=== PATIENT | female | born 1940 | race Caucasian/White ===

== ENCOUNTER 2016-08-13 11:07 | Emergency (ER) | payer MEDICARE ==
[~2016-08-13] VITALS: Ht 167.6 cm; Wt 47.1 kg
[~2016-08-13 11:07] MED LIST: ACTOS30 MG OR; ADLT ASA LOW81 MG PO; AFRIN SINUS; ALBUTEROL S2.5 MG/.5 IN; ALLOPURINOL300 MG PO; AMOXICILLIN500 MG OR; ASPIRIN CHEWABL81 MG PO; AUGMENTIN875TAB PO; BACTRIM DS1 TAB PO; COZAAR50 MG PO; GLIPIZIDE5 MG PO; HUMULIN 70/30 SC; HYDROCHLORO25 MG/TAB PO; HYDROCHLOROT12.5 MG PO; HYDROXYZ HCL25 MG PO; LACTULOSE PO; LANTUS100 MG/ML SC; LASIX 20 MG TAB20 MG PO; LASIX 40 MG TAB40 MG PO; LOSARTAN POT50 MG PO; MAGNESIUM296 ML/BTL PO; MEDDOSEPAK PO; METFORMIN1000 MG PO; METFORMIN500 MG PO; METHOCARBAM500 MG PO; MIRALAX3350 N1 PO; MOTRIN400 MG PO; MUCINEX600 MG PO; NAPROSYN500 MG PO; NAPROXEN500 MG PO; NEBULIZER KIT/TUBING XX; NORVASC10 M1 PO; NOVOLIN 70/30 SC; NOVOLO1 SC; NOVOLOG SC; OXYCODONE HCL5 MG PO; PAROXETINE20 MG PO; PAXIL10 MG OR; PAXIL40 MG PO; PERCOCET 5/325M1 TAB PO; POT CHLORIDE20 ME3 PO; PROMETHAZINE25 MG PO; PROVENTIL HFA INH; RANITIDINE150 M1 PO; RESTORIL15 MG; SENNA/DSS1 TAB PO; SENNA1 TAB PO; SIMVASTATIN10 MG PO; SPIRONOLACTONE100 MG PO; TRAMADOL HCL50 MG PO; VANCOMYCIN750 MG IV; ZOCOR10 MG PO; ZOFRAN8 MG PO; ZPAK PO; augmentin OR
[2016-08-13] MEDS ORDERED: COLACE100 MG PO (12:12)
[2016-08-13 12:34] VITALS: BP 148/76
== END 2016-08-13 12:51 | disposition home or self-care (01) ==
LOC: ED 11:07
DX: K56.41 Fecal impaction (principal); R05 Cough; R06.02 Shortness of breath; R53.1 Weakness; F17.200 Nicotine dependence, unspecified, uncomplicated

== ENCOUNTER 2016-08-22 19:31 | Inpatient (IN) | payer MEDICARE ==
[~2016-08-22] VITALS: Ht 165.1 cm; Wt 42.0 kg
[~2016-08-22 19:31] MED LIST changes: +COLACE100 MG PO
--- NOTE | 2016-08-22 19:31 | NUR ---
ADM A/O ELDERLY FRAIL F WITH STATED ABD PAIN NO BM IN 1 WEEK.WAS DISIMPACTED HERE 1 WEEK AGO PT HAS SOFT DISTENDED ABD WITH ACTIVE SOUNDS.PT HAS INCONTINENCE OF SOFT BROWN STOOL ON ARRIVAL PRAMOD CARE ON ARRIVAL.
--- NOTE | 2016-08-22 20:09 | NUR ---
PT NOW WITH PORT ACCESSED, BLOOD COLLECTED, AWAITS EDP EVALUATION.
[2016-08-22 20:43] LABS: HEMATOCRIT 36.4 % (37.0-47.0); HEMOGLOBIN 12.2 g/dl (12.0-16.0); IMMATURE GRANULOCYTES 0.2 % (0.0-1.0); MEAN CELL VOLUME 88.8 fL CALC (80.0-100.0); MEAN CORPUSCULAR HGB 29.8 pG CALC (26.0-32.0); MEAN CORPUSCULAR HGB CONC 33.5 g/L CALC (32.0-36.0); NEUT# 7.06 thou/uL (2.00-7.15); RED BLOOD COUNT 4.1 mill/uL (4.20-5.60); RED CELL DISTRI WIDTH 13.4 % (11.5-15.5)
[2016-08-22 20:50] LABS: ALBUMIN 2.5 g/dL (3.2-5.0); ALKALINE PHOSPHATASE 336 u/l (38-126); AMYLASE 39 u/l (30-110); ANION GAP 11 (6-22 (CALC)); BILIRUBIN, TOTAL 0.5 mg/dL (0.0-1.4); BUN 40 mg/dL (8-23); BUN/CREATININE RATIO 48 (12-20 (CALC)); CALCIUM 7.6 mg/dL (8.4-10.2); CARBON DIOXIDE 26 mmol/l (22-30); CHLORIDE 94 mmol/l (95-108); CREATININE 0.8 mg/dL (0.5-1.0); GFR > 60 ML/MIN (>=60 (CALC)); GFR FOR AFR.AMER. > 60 ML/MIN (>=60 (CALC)); LIPASE 212 u/l (23-300); SGOT/AST 35 u/l (9-36); SGPT/ALT 30 u/l (11-66); SODIUM 125 mmol/l (137-146); TOTAL PROTEIN 6.4 g/dL (6.3-8.2)
[2016-08-22 20:52] LABS: GLUCOSE 561 mg/dL (82-115); POTASSIUM 5.7 mmol/l (3.5-5.1)
[2016-08-22 22:26] LABS: URINE BILIRUBIN - DIPSTICK NEGATIVE (NEGATIVE); URINE BLOOD DIPSTICK NEGATIVE (NEGATIVE); URINE CLARITY CLEAR; URINE COLOR YELLOW; URINE GLUCOSE - DIPSTICK >=1000 mg/dL (NEGATIVE); URINE KETONE NEGATIVE (NEGATIVE); URINE LEUK ESTERASE NEGATIVE (NEGATIVE); URINE NITRITE - DIPSTICK NEGATIVE (Negative); URINE PROTEIN - DIPSTICK NEGATIVE (NEG-TRACE); URINE SPECIFIC GRAVITY <=1.005; URINE UROBILINOGEN - DIPSTICK 0.2 E.U./dL (0.2)
--- NOTE | 2016-08-22 22:36 | NUR ---
ASLEEP AND IN NO DISCOMFORT NO V/D.
--- NOTE | 2016-08-22 22:57 | NUR ---
PHONE REPORT TO NURSE TOBY
--- NOTE | 2016-08-22 23:35 | NUR ---
TP 2ND FLOOR VIA STRETCHER IN STABLE CONDITION.BEDSIDE REPORT ADDENDUM TO NURSE LUIS
[2016-08-22 23:40] VITALS: BP 114/78
--- NOTE | 2016-08-22 23:45 | NUR ---
RECEIVED FROM ER VIA STRETCHER ACCOMPANIED BY ER NURSE, TRANSFERRED TO BED WITH ASSISTANCE X3, PT IS EMACIATED AND WEAK. RESPIRATIONS EVEN AND UNLABORED ON O2 @3L VIA NC. C/O BACK PAIN 01/06, ACCUCHECK 411. DR. GRACE CALLED AND NOTIFIED, NEW ORDERS RECEIVED. WOUNDS NOTICED TO COCCYX, RIGHT AND LEFT ANKLE, AND TO RIGHT HAND BETWEEN THUMB AND INDEX FINGER. COVERED WITH DRESSINGS. PROVIDED WITH SANDWICH AND DRINK PER PT REQUEST, CHEWING AND SWALLOWING WITH NO PROBLEM. L NARE SWABBED FOR HX OF MRSA, ON CONTACT PRECATIONS. ENCOURAGED TO USE CALL LIGHT FOR ASSISTANCE. WILL CONTINUE TO MONITOR.
--- NOTE | 2016-08-23 00:45 | NUR ---
MEDICATED WITH OXYCODONE FOR C/O BACK PAIN AND RESTORIL FOR SLEEP, ACCUCHECK 411, COVERED WITH 15U OF NOVULOG INSULIN PER DR'S ORDERS. BEDOYA CATHETER 16FR INSERTED WITH 400ML YELLOW URINE DRAINING INTO BAG. ENCOURAGED TO USE CALL LIGHT FOR ASSISTANCE. WILL CONTINUE TO MONITOR.
--- NOTE | 2016-08-23 03:30 | NUR ---
PT RESTING ON RIGHT SIDE WITH EYES CLOSED, RESPIRATIONS EVEN AND UNLABORED.
[2016-08-23 04:04] VITALS: BP 95/63
--- NOTE | 2016-08-23 05:45 | NUR ---
PT REPOSITIONED TO RIGHT SIDE WITH MINIMAL ASSISTANCE, ACCUCHECK 115 AT THIS TIME.
[2016-08-23 08:58] LABS: HEMATOCRIT 38.5 % (37.0-47.0); HEMOGLOBIN 12.9 g/dl (12.0-16.0); IMMATURE GRANULOCYTES 0.5 % (0.0-1.0); MEAN CELL VOLUME 88.5 fL CALC (80.0-100.0); MEAN CORPUSCULAR HGB 29.7 pG CALC (26.0-32.0); MEAN CORPUSCULAR HGB CONC 33.5 g/L CALC (32.0-36.0); NEUT# 6.71 thou/uL (2.00-7.15); RED BLOOD COUNT 4.35 mill/uL (4.20-5.60); RED CELL DISTRI WIDTH 13.3 % (11.5-15.5)
[2016-08-23 09:00] VITALS: BP 122/75
--- NOTE | 2016-08-23 09:00 | NUR ---
ASSESSMENT IS COMPLTED: BREATH SOUNDS ARE WHEEZING THROUGH OUT. IV SITE IS FREE FROM REDNESS OR EDEMA. CONTINUE TO OBSERVE AND MONITOR
[2016-08-23 09:08] LABS: ACT PARTIAL THROMBO TIME 27.6 SECONDS (20.0-32.5); ANION GAP 8 (6-22 (CALC)); BUN 39 mg/dL (8-23); BUN/CREATININE RATIO 42 (12-20 (CALC)); CARBON DIOXIDE 28 mmol/l (22-30); CHLORIDE 98 mmol/l (95-108); CREATININE 0.9 mg/dL (0.5-1.0); GFR > 60 ML/MIN (>=60 (CALC)); GFR FOR AFR.AMER. > 60 ML/MIN (>=60 (CALC)); GLUCOSE 116 mg/dL (82-115); PROTHROMBIN TIME 10.5 SECONDS (9.0-12.5); SODIUM 128 mmol/l (137-146)
[2016-08-23 09:11] LABS: POTASSIUM 5.7 mmol/l (3.5-5.1)
--- NOTE | 2016-08-23 12:00 | NUR ---
PT IS LAYING DOWN. IV SITE IS FREE FROM REDNESS OR EDEMA. NO DISTRESS NOTED. CONITNUE TO OSBERVE AND MONITOR.
--- NOTE | 2016-08-23 14:00 | NUR ---
HOSPICE NURSE AND MARKETING SUPPORT SPECIALIST CAME BY TO SPEAK WITH PT. RE: HOSPICE HOUSE. PT REFUSED TO GO
--- NOTE | 2016-08-23 16:00 | NUR ---
PT IS RELAXING IN BED DID START TO HAVE BM. AIR MATTRESS CHANGED. IV SITE IS FREE FROM REDNESS OR EDEMA. CONTINUE TO OSBERVE AND MONITOR.
[2016-08-23 16:30] VITALS: BP 107/70
--- NOTE | 2016-08-23 16:41 | NUR ---
SMALL AMOUNT OF STOOL EXPELLED ALREADY FROM RECTUM. HAS STOOL RIGHT AT THE ANUS HOLE. LIGHT BROWN. [id number] DONE AND PT ENCOURAGED TO DRINK NULYTELY AND BEAR DOWN TO HAVE THE BM. CONTINUE TO OSBERVE AND MONITOR.
--- NOTE | 2016-08-23 19:00 | NUR ---
RECEIVED REPORT ON PATIENT FROM OFF GOING NURSE. PATIENT RESTING IN BED. NO ACUTE DISTRESS NOTED. NO VOICED COMPLAINTS AT THIS TIME.
[2016-08-23 19:10] VITALS: BP 104/64
--- NOTE | 2016-08-24 | NUR ---
PATIENT RESTING COMFORTABLY IN BED AT THIS TIME. NO VOICED COMPLAINTS.
[2016-08-24 04:10] VITALS: BP 111/72
[2016-08-24 05:50] LABS: HEMATOCRIT 36.9 % (37.0-47.0); HEMOGLOBIN 12.6 g/dl (12.0-16.0); IMMATURE GRANULOCYTES 0.3 % (0.0-1.0); MEAN CELL VOLUME 88.5 fL CALC (80.0-100.0); MEAN CORPUSCULAR HGB 30.2 pG CALC (26.0-32.0); MEAN CORPUSCULAR HGB CONC 34.1 g/L CALC (32.0-36.0); NEUT# 7.41 thou/uL (2.00-7.15); RED BLOOD COUNT 4.17 mill/uL (4.20-5.60); RED CELL DISTRI WIDTH 13.3 % (11.5-15.5)
[2016-08-24 06:37] LABS: BUN 38 mg/dL (8-23); BUN/CREATININE RATIO 50 (12-20 (CALC)); CALCIUM 8.1 mg/dL (8.4-10.2); CARBON DIOXIDE 27 mmol/l (22-30); CHLORIDE 98 mmol/l (95-108); CREATININE 0.8 mg/dL (0.5-1.0); GFR > 60 ML/MIN (>=60 (CALC)); GFR FOR AFR.AMER. > 60 ML/MIN (>=60 (CALC)); GLUCOSE 138 mg/dL (82-115); SODIUM 127 mmol/l (137-146)
[2016-08-24 06:48] LABS: ANION GAP 9 (6-22 (CALC)); POTASSIUM 6.6 mmol/l (3.5-5.1)
--- NOTE | 2016-08-24 07:00 | NUR ---
REPORT RECIEVED FROM JUANJO PATEL; PT RESTING IN BED WITH EYES CLOSED; EASILY AROUSABLE; PT DENIES ANY NEEDS AT THIS TIME; AIR MATTRESS IN PLACE FOR PT COMFORT; IVF INFUSING TO LEFT PORT ORDERED; PT ENCOURAGED TO CALL FOR ANY ASSISTANCE NEEDED; CALL LIGHT WITHIN REACH; WILL CONTINUE TO MONITOR
[2016-08-24 08:30] VITALS: BP 104/78
--- NOTE | 2016-08-24 11:30 | NUR ---
PT RESTING IN BED ON LEFT SIDE; PT INCONTINENT OF STOOL AT THIS TIME; PERICARE PROVIDED AND PT POSITIONED FOR COMFORT; PT STATES PAIN IS MUCH BETTER THAN BEFORE; PT ENCOURAGED TO CALL FOR ANY ASSISTANCE NEEDED; CALL LIGHT WITHIN REACH; WILL CONTINUE TO MONITOR
[2016-08-24 14:10] LABS: BUN 38 mg/dL (8-23); BUN/CREATININE RATIO 45 (12-20 (CALC)); CARBON DIOXIDE 30 mmol/l (22-30); CHLORIDE 97 mmol/l (95-108); CREATININE 0.8 mg/dL (0.5-1.0); GFR > 60 ML/MIN (>=60 (CALC)); GFR FOR AFR.AMER. > 60 ML/MIN (>=60 (CALC)); GLUCOSE 193 mg/dL (82-115); SODIUM 130 mmol/l (137-146)
[2016-08-24 14:11] LABS: ANION GAP 9 (6-22 (CALC)); POTASSIUM 5.7 mmol/l (3.5-5.1)
[2016-08-24] MEDS ORDERED: SENNA8.6 MG PO (15:00)
[2016-08-24 16:20] VITALS: BP 91/64
--- NOTE | 2016-08-24 16:30 | NUR ---
PT RESTING IN BED ON RIGHT SIDE; NO S/S OF DISTRESS NOTED; BEDOYA IN PLACE DRAINING GERARD URINE PER GRAVITY; AIR MATTRESS IN PLACE; CALL LIGHT WITHIN REACH; WILL CONTINUE TO MONITOR
--- NOTE | 2016-08-24 19:32 | NUR ---
PATIENT APPEARS SLEEPING AT THIS TIME POSITIONED ON LEFT SIDE. PATIENT WITH BEDOYA CATH PATENT AND DRAINING GERARD URINE. PATIENT WITH IVF NS PATENT AND INFUSING VIA LEFT UPPER CHEST PORT. CALL LIGHT IN REACH. WILL CONT TO MONITOR.
[2016-08-24 20:11] VITALS: BP 102/64
--- NOTE | 2016-08-24 21:43 | NUR ---
PATIENT TURNED AND REPOSITIONED ON RIGHT SIDE. PATIENT MEDICATED WITH KAYEXALATE 15GM PO ORDERED. BS-228 AND WAS COVERED PER SLIDING SCALE COVERAGE WITH 2UNITS OF NOVALOG. PATIENT MEDICATED WITH ULTRAM FOR BACK PAIN-7/10 ON PAIN SCALE. PATIENT ALSO GIVEN XANAX 0.5MG PO FOR ANXIETY. CALL LIGHT IN REACH. WILL CONT TO MONIOR.
--- NOTE | 2016-08-25 00:21 | NUR ---
PATIENT APPEARS SLEEPING AT THIS TIME POSITIONED ON HER SIDE. CALL LIGHT IN REACH. WILL CONT TO MONITOR.
--- NOTE | 2016-08-25 04:13 | NUR ---
PATIENT APPEARS SLEEPING AT THIS TIME. IVF PATENT AND INFUSING LEFT UPPER CHEST PORT AT 60CC/HR. CALL LIGHT IN REACH. WILL CONT TO MONITOR.
[2016-08-25 04:45] VITALS: BP 112/76
[2016-08-25 05:54] LABS: HEMATOCRIT 33.6 % (37.0-47.0); HEMOGLOBIN 11.1 g/dl (12.0-16.0); IMMATURE GRANULOCYTES 0.2 % (0.0-1.0); MEAN CELL VOLUME 90.1 fL CALC (80.0-100.0); MEAN CORPUSCULAR HGB 29.8 pG CALC (26.0-32.0); NEUT# 6.42 thou/uL (2.00-7.15); RED BLOOD COUNT 3.73 mill/uL (4.20-5.60); RED CELL DISTRI WIDTH 13.6 % (11.5-15.5)
[2016-08-25 06:08] LABS: ALBUMIN 2.1 g/dL (3.2-5.0); ALKALINE PHOSPHATASE 322 u/l (38-126); BILIRUBIN, TOTAL 0.3 mg/dL (0.0-1.4); BUN 34 mg/dL (8-23); BUN/CREATININE RATIO 45 (12-20 (CALC)); CALCIUM 7.5 mg/dL (8.4-10.2); CARBON DIOXIDE 25 mmol/l (22-30); CREATININE 0.8 mg/dL (0.5-1.0); GFR > 60 ML/MIN (>=60 (CALC)); GFR FOR AFR.AMER. > 60 ML/MIN (>=60 (CALC)); GLUCOSE 168 mg/dL (82-115); SGOT/AST 60 u/l (9-36); SGPT/ALT 41 u/l (11-66); SODIUM 129 mmol/l (137-146); TOTAL PROTEIN 5.6 g/dL (6.3-8.2)
[2016-08-25 06:10] LABS: POTASSIUM 5.7 mmol/l (3.5-5.1)
[2016-08-25 06:11] LABS: ANION GAP 9 (6-22 (CALC)); CHLORIDE 101 mmol/l (95-108)
--- NOTE | 2016-08-25 07:25 | NUR ---
PT IN SUPINE POSITION; NO COMPLAINTS VOICED; CALL LATHAM WITHIN REACH; WILL CONTINUE TO MONITOR.
[2016-08-25 08:21] VITALS: BP 86/50
--- NOTE | 2016-08-25 08:21 | NUR ---
DR. GRACE IN TO SEE PT; PLAN OF CARE DISCUSSED
--- NOTE | 2016-08-25 11:53 | NUR ---
PT WATCHING TV; DENIES PAIN; CALL LATHAM WITHIN REACH; WILL CONTINUE TO MONITOR.
--- NOTE | 2016-08-25 12:40 | NUR ---
PT TO RADIOLOGY VIA STRETCHER ACCOMPANIED BY STAFF
--- NOTE | 2016-08-25 13:40 | NUR ---
PT RETURN FROM RADIOLOGY VIA STRETCHER ACCOMPANIED BY STAFF; X2 TX TO BED; NO COMPLAINTS VOICED; CALL LATHAM WITHIN REACH; WILL CONTINUE TO MONITOR.
[2016-08-25 16:00] VITALS: BP 104/69
--- NOTE | 2016-08-25 16:30 | NUR ---
SPOUSE IN TO VISIT; INQUIRING ABOUT D/C HOME TODAY; INFORMED THEM MD WILL BE IN TO SEE PT AND MAKE DETERMINATION AT THAT TIME
--- NOTE | 2016-08-25 17:30 | NUR ---
DR. GRACE IN TO SEE PT; PLAN OF CARE DISCUSSED
[2016-08-25 19:21] VITALS: BP 100/58
--- NOTE | 2016-08-25 19:30 | NUR ---
PATIENT RESTING IN BED AT THIS TIME WITH O2 VIA NASAL CANNULA IN PLACE. PATIENT WITH IVF NS PATENT AND INFUSING LEFT UPPER CHEST PORT AT 60CC/HR. PATIENT WITH BEDOYA CATH IN PLACE AND DRAINING SMALL AMT OF GERARD URINE. PATIENT STATES THAT SHE HAS HAD MUCH RELIEF SINCE PARACENTESIS DONE EARLIER TODAY. DRESSING TO BOTH FEET INTACT AND DUSDERM TO COCCYX INTACT. ENCOURAGED PATIENT TO REPOSITION SIDE TO SIDE TO OFFLOAD PRESSURE POINTS. CALL LIGHT IN REACH. WILL CONT TO MONITOR.
--- NOTE | 2016-08-25 22:45 | NUR ---
PATIENT WAS COVERED WITH 2UNITS OF NOVALOG FOR BS-241. PATIENT MEDICATED FOR SLEEP WITH XANAX 0.5MG PO PER PATIENT REQUEST. CALL LIGHT IN REACH. WILL CONT TO MONITOR.
--- NOTE | 2016-08-26 02:06 | NUR ---
PATIENT APPEARS SLEEPING AT THIS TIME POSITIONED ON HER SIDE. CALL LIGHT IN REACH. WILL CONT TO MONITOR.
[2016-08-26 04:29] VITALS: BP 107/64
[2016-08-26 05:26] LABS: HEMATOCRIT 30.4 % (37.0-47.0); HEMOGLOBIN 10.3 g/dl (12.0-16.0); IMMATURE GRANULOCYTES 0.3 % (0.0-1.0); MEAN CELL VOLUME 90.2 fL CALC (80.0-100.0); MEAN CORPUSCULAR HGB 30.6 pG CALC (26.0-32.0); MEAN CORPUSCULAR HGB CONC 33.9 g/L CALC (32.0-36.0); NEUT# 7.47 thou/uL (2.00-7.15); RED BLOOD COUNT 3.37 mill/uL (4.20-5.60); RED CELL DISTRI WIDTH 13.6 % (11.5-15.5)
[2016-08-26 05:46] LABS: ALBUMIN 1.9 g/dL (3.2-5.0); ALKALINE PHOSPHATASE 305 u/l (38-126); ANION GAP 9 (6-22 (CALC)); BILIRUBIN, TOTAL 0.3 mg/dL (0.0-1.4); BUN 32 mg/dL (8-23); BUN/CREATININE RATIO 46 (12-20 (CALC)); CALCIUM 7.4 mg/dL (8.4-10.2); CARBON DIOXIDE 25 mmol/l (22-30); CHLORIDE 101 mmol/l (95-108); CREATININE 0.7 mg/dL (0.5-1.0); GFR > 60 ML/MIN (>=60 (CALC)); GFR FOR AFR.AMER. > 60 ML/MIN (>=60 (CALC)); GLUCOSE 220 mg/dL (82-115); SGOT/AST 59 u/l (9-36); SGPT/ALT 46 u/l (11-66); SODIUM 130 mmol/l (137-146)
[2016-08-26 05:47] LABS: POTASSIUM 5.3 mmol/l (3.5-5.1)
--- NOTE | 2016-08-26 06:00 | NUR ---
PATIENT CONT TO SLEEP-IN NO ACUTE DISTRESS WITHO2 VIA NASAL CANNULA IN PLACE. CALL LIGHT IN REACH. WILL CONT TO MONITOR.
[2016-08-26 07:25] VITALS: BP 96/52
--- NOTE | 2016-08-26 07:41 | NUR ---
PT ASSISTED WITH BREAKFAST SET UP; NO COMPLAINTS VOICED
--- NOTE | 2016-08-26 08:20 | NUR ---
DR. GRACE IN TO SEE PT; PLAN OF CARE DISCUSSED
[2016-08-26] MEDS ORDERED: SPIRONOLACTONE100 MG PO (09:07)
[2016-08-26] MEDS ORDERED: PROVENTIL HFA INH (09:07)
[2016-08-26] MEDS ORDERED: ALBUTEROL S2.5 MG/.5 IN (09:07)
[2016-08-26] MEDS ORDERED: OXYCODONE HCL5 MG PO (09:08)
[2016-08-26] MEDS ORDERED: ADLT ASA LOW81 MG PO (09:08)
[2016-08-26] MEDS ORDERED: PAROXETINE20 MG PO (09:09)
[2016-08-26] MEDS ORDERED: FENTANYL25 MCG/HR TD (09:09)
--- NOTE | 2016-08-26 09:33 | NUR ---
Patient is here for Procrit injection Current Procrit dose of 24,000 units on 08/26/16 Previous Procrit dose of 24,000 units on 08/13/16 Current Hgb on 08/13/16: 10.7 Previous Hgb on 07/16/16: 10.9 Previous Iron study on 05/04/16 Next Iron Study on 09/10/16 Next Hgb due on 09/10/16 Pt will come back for next dose of 24,000 units on 09/10/16 Notes: Pt was very pleasant and grateful for all we do for him. No changes in BP, diet, or activity. Pt discussed a concern with the cost of each visit. I told him I would look into it and discuss it with him next time. I am looking into any programs that may offer supplimental coverage for his medication. Side effects: No Dose adjustments: No
--- NOTE | 2016-08-26 11:03 | NUR ---
PORT REMOVED PER PROTOCOL; PT TOLERATED FAIR
--- NOTE | 2016-08-26 11:21 | NUR ---
Discharge instructions given. Patient verbalizes understanding of same. Discharged in stable condition via Wheelchair to Home with family. All belongings sent with pt.
== END 2016-08-26 11:12 | disposition hospice, home (50) | DRG 392 ==
LOC: ENPENDDIS → ED 19:31 → ED-I 22:41 → ED 23:23 → MS2 23:24
PROVIDERS: Emergency Medicine; ADMIT Internal Medicine Geriatric Medicine; ATTEND Internal Medicine Geriatric Medicine
PROC: 0W9G3ZZ Drainage of Peritoneal Cavity, Percutaneous Approach (ICD-10-PCS; principal; 2016-08-25)
DX: K59.03 Drug induced constipation (principal); E11.65 Type 2 diabetes mellitus with hyperglycemia; R18.8 Other ascites; E87.1 Hypo-osmolality and hyponatremia; E87.5 Hyperkalemia; T40.2X5A Adverse effect of other opioids, initial encounter; I10 Essential (primary) hypertension; K74.60 Unspecified cirrhosis of liver; I25.10 Atherosclerotic heart disease of native coronary artery without angina pectoris; J44.9 Chronic obstructive pulmonary disease, unspecified; R53.1 Weakness; E86.1 Hypovolemia; E86.0 Dehydration; B18.2 Chronic viral hepatitis C; F17.290 Nicotine dependence, other tobacco product, uncomplicated; K80.20 Calculus of gallbladder without cholecystitis without obstruction; Z51.5 Encounter for palliative care
CPT/HCPCS: G0378

== ENCOUNTER 2016-09-07 10:17 | Day surgery (SDC) | payer MEDICARE ==
[~2016-09-07] VITALS: Ht 165.1 cm; Wt 42.2 kg
[~2016-09-07 10:17] MED LIST changes: +FENTANYL25 MCG/HR TD; +SENNA8.6 MG PO
[2016-09-07 13:30] VITALS: BP 122/82
== END 2016-09-07 12:35 | disposition home or self-care (01) ==
LOC: ORM 10:17
PROVIDERS: ATTEND Radiology Diagnostic Radiology
PROC: 0W9G30Z Drainage of Peritoneal Cavity with Drainage Device, Percutaneous Approach (ICD-10-PCS; principal; 2016-09-07)
PROC: BW11ZZZ Fluoroscopy of Abdomen and Pelvis (ICD-10-PCS; 2016-09-07)
DX: K74.60 Unspecified cirrhosis of liver (principal); R18.8 Other ascites